=== PATIENT | female | born 1960 | race African-American/Black ===

== ENCOUNTER 2019-08-05 11:02 | Outpatient (CLI) | payer BC | END 2019-08-05 23:59 | disposition home or self-care (01) | LOC: CT 11:02 | PROVIDERS: ATTEND Internal Medicine Interventional Cardiology | DX: M50.322 Other cervical disc degeneration at C5-C6 level (principal); M48.02 Spinal stenosis, cervical region; R51 Headache | CPT/HCPCS: 70450-TC; 70490-TC ==